=== PATIENT | female | born 2000 | race Caucasian/White ===

== ENCOUNTER 2018-11-20 10:48 | Inpatient (IN) | payer OTHER ==
[~2018-11-20] VITALS: Ht 142.2 cm; Wt 84.8 kg
[2018-11-20] MEDS ORDERED: OXYTOCIN/0.9 % SODIUM CHLORIDE 1,000 ML IV SCH (12:06)
[2018-11-20] MEDS ORDERED: LR 1,000 ML IV ONE (12:06)
[2018-11-20] MEDS ORDERED: LR 500 ML IV ONE (12:06)
[2018-11-20] MEDS ORDERED: TERBUTALINE SULFATE 1 MG/ML VIAL SUBCUT ONE (12:15)
[2018-11-20 12:46] LABS: HEMOGLOBIN 12.9 g/dL (12.0-16.0); MEAN CORPUSCULAR HEMOGLOBIN 31 pg (27-31); MEAN CORPUSCULAR HGB CONC 33 % (32-36); MEAN CORPUSCULAR VOLUME 93 fL (79.0-98.0); PLATELET COUNT (AUTO) 199 K/uL (130-430); RED BLOOD CELL COUNT(AUTO) 4.21 MIL/uL (4.2-6.2); RED CELL DISTRIBUTION WIDTH 19.8 % (9.0-15.0); WHITE BLOOD COUNT (AUTO) 12.3 K/uL (4.5-11.0)
[2018-11-20 12:47] VITALS: BP_SYST 122
[2018-11-20 12:47] LABS: BASOPHILS % (AUTO) 0.2 % (0.0-2.0); EOSINOPHILS % (AUTO) 0.3 % (0.0-4.0); LYMPHOCYTES # (AUTO) 1.4 K/uL (1.0-5.5); LYMPHOCYTES % (AUTO) 11.6 % (20.5-51.5); MONOCYTES # (AUTO) 0.5 K/uL (0.0-1.0); MONOCYTES % (AUTO) 3.7 % (1.7-9.3); NEUTROPHILS # (AUTO) 10.4 K/uL (1.8-7.7); NEUTROPHILS % (AUTO) 84.2 % (40.0-70.0)
[2018-11-20] MEDS: NALBUPHINE HCL 10 MG/ML AMP IVP PRN (17:13)
[2018-11-20] MEDS ORDERED: fentaNYL CITRATE/PF 100 MCG/2 ML AMP ONE (19:31)
[2018-11-20] MEDS ORDERED: ROPIVACAINE 0.2% 100 ML ONE (19:32)
[2018-11-20] MEDS: LR 1,000 ML IV SCH (20:00)
[2018-11-21] MEDS ORDERED: ONDANSETRON HCL 4 MG/2 ML VIAL IVP PRN ×2 (00:30→18:00)
[2018-11-21] MEDS ORDERED: ONDANSETRON HCL 4 MG/2 ML VIAL ONE (00:43)
[2018-11-21] MEDS ORDERED: ROPIVACAINE 0.2% 100 ML ONE ×2 (04:53→12:54)
[2018-11-21] MEDS: LR 1,000 ML IV SCH ×2 (08:00→12:35)
[2018-11-21] MEDS ORDERED: LR 500 ML IV ONE (08:51)
[2018-11-21] MEDS ORDERED: FENT2mCg/mL-ROPIVA0.2%/NS EPID 100 ML EP SCH (09:00)
[2018-11-21] MEDS ORDERED: fentaNYL CITRATE/PF 100 MCG/2 ML AMP ONE (12:54)
[2018-11-21] MEDS: NALBUPHINE HCL 10 MG/ML AMP IVP PRN (13:31)
[2018-11-21] MEDS ORDERED: AMPICILLIN SODIUM 2 GM in NS 100 ML IV ONE (15:00)
[2018-11-21] MEDS ORDERED: OXYTOCIN/0.9 % SODIUM CHLORIDE 1,000 ML IV ONE ×2 (17:11→19:03)
[2018-11-21] MEDS ORDERED: DIPH-TET-PERTUS Vaccine 0.5 ML VIAL (ADACEL) I.M. PRN (17:15)
[2018-11-21] MEDS ORDERED: CEFAZOLIN 2 GM IVPB PREMIX 50 ML IV ONE ×2 (17:15→17:16)
[2018-11-21] MEDS ORDERED: LANOLIN 7 GM OINT. TP PRN (17:15)
[2018-11-21] MEDS ORDERED: LR 1,000 ML IV SCH (17:50)
[2018-11-21] MEDS ORDERED: KETOROLAC TROMETHAMINE 60 MG/2 ML VIAL IM PRN (18:00)
[2018-11-21] MEDS ORDERED: METOCLOPRAMIDE HCL 10 MG/2 ML VIAL IVP PRN (18:00)
[2018-11-21] MEDS ORDERED: MORPHINE SULFATE 10MG/10ML PF AMP EP SCH (18:00)
[2018-11-21] MEDS ORDERED: DIPHENHYDRAMINE INJ 50 MG/ML VIAL IM PRN (18:00)
[2018-11-21] MEDS ORDERED: NALOXONE HCL 0.4 MG/ML AMP (NARCAN) IVP PRN (18:00)
[2018-11-21 18:10] VITALS: BP_SYST 140
[2018-11-21] MEDS ORDERED: TEMAZEPAM 15 MG CAPSULE PO PRN (21:00)
[2018-11-22] MEDS ORDERED: KETOROLAC TROMETHAMINE 30 MG VIAL IM SCH
[2018-11-22] MEDS: ceFAZolin SODIUM 1 GM in D5W 50 ML IV SCH ×4 (05:50→12:00)
[2018-11-22 08:36] LABS: HEMATOCRIT 35.6 % (36-48); HEMOGLOBIN 11.9 g/dL (12.0-16.0); MEAN CORPUSCULAR HEMOGLOBIN 31 pg (27-31); MEAN CORPUSCULAR HGB CONC 33 % (32-36); MEAN CORPUSCULAR VOLUME 94 fL (79.0-98.0); RED BLOOD CELL COUNT(AUTO) 3.78 MIL/uL (4.2-6.2); RED CELL DISTRIBUTION WIDTH 17.9 % (9.0-15.0); WHITE BLOOD COUNT (AUTO) 16.3 K/uL (4.5-11.0)
[2018-11-22 08:42] LABS: BASOPHILS % (AUTO) 0.1 % (0.0-2.0); EOSINOPHILS % (AUTO) 0.1 % (0.0-4.0); LYMPHOCYTES % (AUTO) 6.5 % (20.5-51.5); MONOCYTES # (AUTO) 0.4 K/uL (0.0-1.0); MONOCYTES % (AUTO) 2.7 % (1.7-9.3); NEUTROPHILS # (AUTO) 14.7 K/uL (1.8-7.7); PLATELET COUNT (AUTO) 179 K/uL (130-430)
[2018-11-22 11:16] LABS: NEUTROPHILS % (AUTO) 90.6 % (40.0-70.0)
[2018-11-22] MEDS ORDERED: KETOROLAC TROMETHAMINE 30 MG VIAL IVP SCH (12:00)
[2018-11-22] MEDS: IBUPROFEN 600 MG TABLET PO SCH ×3 (12:00→23:18)
[2018-11-22] MEDS: SIMETHICONE 80 MG TAB.CHEW PO PRN ×2 (17:55→23:18)
[2018-11-22] MEDS: DOCUSATE SODIUM 100 MG CAPSULE PO PRN ×2 (17:55→23:18)
[2018-11-22] MEDS ORDERED: IBUPROFEN 600 MG TABLET PO SCH (18:00)
[2018-11-23] MEDS: IBUPROFEN 600 MG TABLET PO SCH (12:00)
== END 2018-11-23 15:45 | disposition home or self-care (01) | DRG 540 ==
LOC: SPU 11:30
PROVIDERS: ADMIT Obstetrics & Gynecology; ATTEND Obstetrics & Gynecology
PROC: 10D00Z1 Extraction of Products of Conception, Low, Open Approach (ICD-10-PCS; principal; 2018-11-21 16:30)
DX: O33.9 Maternal care for disproportion, unspecified (principal); E66.01 Morbid (severe) obesity due to excess calories; O99.214 Obesity complicating childbirth; O62.2 Other uterine inertia; O77.0 Labor and delivery complicated by meconium in amniotic fluid; Z37.0 Single live birth; Z3A.39 39 weeks gestation of pregnancy
CPT/HCPCS: 36415; 81002-TC; 85025; 86592; 86886; 86900; 86901; 94760; J0290; J0690; J2300; J2405; J2590; J2795; J3010; J7060; J7120